=== PATIENT | female | born 1990 | race Caucasian/White ===

== ENCOUNTER 2018-04-13 20:16 | Emergency (ER) | payer MEDICAID ==
--- NOTE | 2018-04-13 20:47 | EDPHY ---
H & P Stated Complaint: on 04/10/18 abd pain since Time Seen by Provider: 04/13/18 20:38 HPI/ROS: CHIEF COMPLAINT: Suprapubic abdominal pain HISTORY OF PRESENT ILLNESS: 27-year-old female TAB 1 postop day 3 post medical in [place] complaining of suprapubic abdominal pain for the past 2 days. The patient was approximately 8 weeks at time of medical . Positive vaginal bleeding. No nausea or vomiting. No fever no chills. No flu-like symptoms. No urinary abnormality beyond hematuria. REVIEW OF SYSTEMS: 10 systems reviewed and negative with the exception of the elements mentioned in the history of present illness PAST MEDICAL & SURGICAL HISTORY: TAB 1 postop day 3 post medical at 8 weeks gestation SOCIAL HISTORY:Nonsmoker PHYSICAL EXAM (Prior to examination, patient consented to physical exam, hands were washed and my usual and customary physical exam procedures followed) 1) GENERAL: Well-developed, well-nourished, alert and oriented. Appears uncomfortable 2) HEAD: Normocephalic, atraumatic 3) HEENT: Pupils equal, round, reactive to light bilaterally. Sclera anicteric. 4) NECK: Full range of motion, no meningeal signs. 5) LUNGS: Clear auscultation bilaterally, no wheezes, no rhonchi, no retractions. 6) HEART: Regular rate and rhythm, no murmur, no heave, no gallop. 7) ABDOMEN: guarding abdomen, tender to palpation suprapubic region,, 8) MUSCULOSKELETAL: Moving all extremities, no focal areas of tenderness, no obvious trauma. No peripheral edema or discoloration. 9) BACK: No CVA tenderness, no midline vertebral tenderness, no fluctuance, no step-off, no obvious trauma, no visual or palpable abnormality. 10) SKIN: No rash, no petechiae. 11) PELVIC (with female tech Viviana at bedside): Normal female external genitalia, no lesions visualized. Speculum examination reveals old blood in the vaginal vault DIFFERENTIAL DIAGNOSIS: My differential diagnosis includes, but is not limited to, retained products of conception, ectopic , post hemorrhage , - Personal History LMP (Females 10-55): Over 28 Days Ago Current Tetanus/Diphtheria Vaccine: Yes Current Tetanus Diphtheria and Acellular Pertussis (TDAP): Yes - Medical/Surgical History Hx Asthma: No Hx Chronic Respiratory Disease: No Hx Diabetes: No Hx Cardiac Disease: No Hx Renal Disease: No Hx Cirrhosis: No Hx Alcoholism: No Hx HIV/AIDS: No Hx Splenectomy or Spleen Trauma: No Other PMH: denies - Social History Smoking Status: Never smoked Constitutional: Initial Vital Signs Temperature (C) 37.0 C 04/13/18 20:24 Heart Rate 99 04/13/18 20:24 Respiratory Rate 18 04/13/18 20:24 Blood Pressure 115/75 04/13/18 20:24 O2 Sat (%) 98 04/13/18 20:24 O2 Delivery Mode Room Air Allergies/Adverse Reactions: metronidazole [From Flagyl] Allergy (Verified 04/13/18 20:28) Swelling/neck,face,throat & hives Home Medications: Medication Instructions Recorded Hydrocodone/APAP 5/325 [[place] 1 tab PO Q6 PRN #7 tab 04/14/18 5/325 (RX)] Medical Decision Making ED Course/Re-evaluation: 8:47 p.m.: Will obtain diagnostic studies including pelvic ultrasound 11:40 p.m.: Patient was re-evaluated with serial examinations . She is feeling improvement in pain. informed that retained products conception not ruled out. Doubt acute infectious etiology. 11:50 p.m.: Phone consultation with on-call OBGYN Dr. Kwok 11:50 p.m., discussed the imaging results showing possible retained products of conception. Patient states that she is unable to stand Hospital due to childcare issues. Dr. Kwok agrees to see patient in office the next 1-2 days for recheck. I saw this patient independently based on established practice protocols. Care of patient under supervision of secondary supervising physician Dr Up with whom I discussed case. - Data Points Laboratory Results: Laboratory Results 04/13/18 20:50 04/13/18 20:50 Medications Given: Discontinued Medications Hydrocodone Bitart/Acetaminophen ([place] 5/325mg Prepack#6) 1 btl TAKEHOME EDNOW ONE Stop: 04/14/18 00:12 Last Admin: 04/14/18 00:19 Dose: 1 btl Sodium Chloride (Ns) 1,000 mls @ 0 mls/hr IV ONCE ONE PRN Reason: Wide Open Stop: 04/13/18 21:00 Last Admin: 04/13/18 21:06 Dose: 1,000 mls Morphine Sulfate (Morphine) 4 mg IVP EDNOW ONE Stop: 04/13/18 21:00 Last Admin: 04/13/18 21:06 Dose: 4 mg Morphine Sulfate (Morphine) 4 mg IVP EDNOW ONE Stop: 04/13/18 21:40 Last Admin: 04/13/18 21:42 Dose: 4 mg Departure - Departure Disposition: [facility] Inpatient Acute Clinical Impression: Possible retained products conception Condition: Good Instructions: Hydrocodone/Acetaminophen (By mouth), Dilation and Curettage (DC) Additional Instructions: Return to emergency department if you develop increasing vaginal bleeding, increasing abdominal pain or any other symptoms that concern you. Referrals: Reina Kwok DO [Doctor of Osteopathy] - 1-2 days without fail Prescriptions: Hydrocodone/APAP 5/325 [[place] 5/325 (RX)] 1 tab PO Q6 PRN #7 tab PRN Reason: Pain, Severe
[2018-04-13] MEDS ORDERED: NS 1,000 ML IV ONE (20:59)
[2018-04-13 21:04] LABS: PLATELET COUNT 235 10^3/uL (150-400)
[2018-04-14] MEDS ORDERED: HYDROCOD/APAP 5/325 PREPACK#6 BTL TAKEHOME ONE (00:11)
[2018-04-14 00:25] VITALS: BP 114/74
== END 2018-04-14 00:28 | disposition still patient (30) ==
DX: R10.30 Lower abdominal pain, unspecified (principal); Z98.890 Other specified postprocedural states
CPT/HCPCS: 96374; J2270